=== PATIENT | male | born 1945 | race Caucasian/White ===

== ENCOUNTER 2017-05-31 15:24 | Emergency (ER) | payer OTHER ==
[~2017-05-31] VITALS: Ht 188 cm; Wt 53.8 kg
[~2017-05-31 15:24] MED LIST: ADULT LOW DOSE81 M1 PO; ALLERGY RELIEF25 MG PO; ATORVASTATIN CA40 MG PO; BENADRYL ALLERG25 MG PO; CATAPRES0.2 MG PO; DESYREL100 MG PO; DIGOX125 MCG PO; GINKGO BILOBA60 M1 PO; GLUCOPHAGE XR750 MG PO; HYDROCODON-ACE1 EAC7 PO; KEFLEX500 MG PO; LANOXIN,DIGIT0.25 MG PO; LANOXIN250 MCG PO; LEVOTHROID,S0.125 MG PO; LEVOTHYROXINE125 MCG PO; LEXAPRO5 MG PO; LIPITOR10 MG PO; LOPRESSOR50 MG PO; MEDROL DOSEPAK4 MG PO; MELATONIN1 MG PO; MELATONIN5 M1 PO; METFORMIN HCL500 MG PO; METFORMIN HCL750 MG PO; METOPROLOL TAR100 MG PO; MULTIVITAMIN1 EAC1 PO; NAPROSYN250 MG PO; NORCO 5/3251 TABLET PO; PRADAXA150 MG PO; PREDNISONE20 MG PO; TYLENOL PM1 CAPLET PO; ULTRAM50 MG PO; WARFARIN SODIUM3 MG PO; ZOLPIDEM TARTRA10 MG PO; ZOLPIDEM TARTRAT5 MG PO
[2017-05-31 16:06] LABS: BASOPHIL COUNT 0.1 K/uL (0-0.1); EOSINOPHIL (%) 2.1 % (0-5); EOSINOPHIL COUNT 0.2 K/uL (0-0.3); HEMATOCRIT 41.7 % (38.0-50.0); IMMATURE GRANULOCYTE (%) 0.4 % (0.0-0.7); INSTRUMENT ABS NEUTROPHIL CT 5.2 K/uL; LYMPHOCYTE COUNT 3.2 K/uL (1.0-2.8); MCH 31.2 PG (29.0-34.0); MCHC 32.6 G/DL (30.0-36.0); MCV 95.6 FL (86-99); MEAN PLAT.VOLUME 10.7 uM^3 (9.0-12.4); MONOCYTE (%) 4.9 % (3-12); MONOCYTE COUNT 0.5 K/uL (0-0.8); NEUTROPHIL (%) 56.7 % (45-76); NEUTROPHIL COUNT 5.2 K/uL (1.8-6.4); PLATELET COUNT 192 K/uL (156-360); RBC DIS.WIDTH-CV 14.6 % (11.8-14.6); RED BLOOD COUNT 4.36 M/uL (4.00-5.50); WHITE BLOOD COUNT 9.1 K/uL (4.1-10.2)
[2017-05-31 16:14] LABS: CHLORIDE 103 mEq/L (99-109); POTASSIUM 4.1 mEq/L (3.7-5.4); SODIUM 138 mEq/L (136-147)
[2017-05-31 16:16] LABS: GLUCOSE 304 mg/dL (70-99)
[2017-05-31 16:17] LABS: ANION GAP 11 MEQ/L (2-14)
[2017-05-31 16:19] LABS: GFR ESTIMATE (CALCULATED) 46 mL/min/; SERUM ETHYL ALCOHOL < 10 mg/dL
[2017-05-31 16:20] LABS: UREA NITROGEN (BUN) 16 mg/dL (9-23)
[2017-05-31 17:19] LABS: ADD MIUA? YES; BILIRUBIN NEGATIVE; BLOOD NEGATIVE; COLOR YELLOW ((YELLOW)); GLUCOSE (STRIP) 150; KETONES NEGATIVE; LEUKOCYTES MODERATE; NITRITE NEGATIVE; PROTEIN (STRIP) 30; SPECIFIC GRAVITY 1.016 (1.000-1.030)
[2017-05-31 17:29] LABS: AMPHETAMINE NEGATIVE (500 ng/mL); BARBITURATES NEGATIVE (200 ng/mL); BENZODIAZEPINES NEGATIVE (150 ng/mL); COCAINE NEGATIVE (150 ng/mL); INTERNAL CONTROLS VALID? YES; METHADONE NEGATIVE (200 ng/mL); METHAMPHETAMINE NEGATIVE (500 ng/mL); OPIATES (MORPHINE) NEGATIVE (100 ng/mL); OXYCODONE NEGATIVE (100 ng/mL); PHENCYCLIDINE NEGATIVE (25 ng/mL); PROPOXYPHENE NEGATIVE (300 ng/mL); THC CANNABINOIDS NEGATIVE (50 ng/mL); TRICYCLIC ANTIDEPRESSANTS NEGATIVE (300 ng/mL)
[2017-05-31 17:34] LABS: BACTERIA RARE /HPF; CALCIUM OXALATE CRYSTALS 1+ /HPF; EPITHELIAL CELLS RARE /HPF; MUCUS TRACE /LPF; RED BLOOD CELLS 0-5 /HPF (0-5); WHITE BLOOD CELLS TNTC /HPF (0-5)
[2017-05-31] MEDS ORDERED: LEVAQUIN750 MG PO (19:41)
[2017-05-31 19:42] LABS: POINT-OF-CARE METER ID UU14100415
[2017-05-31] MEDS ORDERED: LEVAQUIN500 MG PO (19:43)
[2017-05-31 20:30] VITALS: BP 127/90
== END 2017-05-31 20:30 | disposition home or self-care (01) ==
LOC: EME 15:24
PROVIDERS: Emergency Medicine
DX: F03.91 Unspecified dementia, unspecified severity, with behavioral disturbance (principal); F02.81 Dementia in other diseases classified elsewhere, unspecified severity, with behavioral disturbance; N39.0 Urinary tract infection, site not specified; E11.9 Type 2 diabetes mellitus without complications; Z87.820 Personal history of traumatic brain injury; F32.9 Major depressive disorder, single episode, unspecified; E78.5 Hyperlipidemia, unspecified; I10 Essential (primary) hypertension; I48.91 Unspecified atrial fibrillation; Z79.84 Long term (current) use of oral hypoglycemic drugs; Z86.73 Personal history of transient ischemic attack (TIA), and cerebral infarction without residual deficits; F17.200 Nicotine dependence, unspecified, uncomplicated
CPT/HCPCS: 80048; 81003; 82948; 85025; 90837; 99281; 99285; G0480; J0696; J7030; J7050

== ENCOUNTER 2017-07-20 16:42 | Inpatient (IN) | payer OTHER ==
[~2017-07-20] VITALS: Ht 188 cm; Wt 74.5 kg
[~2017-07-20 16:42] MED LIST changes: +DAILY VALUE1 EACH PO; +LEVAQUIN500 MG PO; +LEVAQUIN750 MG PO; -MULTIVITAMIN1 EAC1 PO
[2017-07-20 17:36] LABS: HEMATOCRIT 40.1 % (38.0-50.0); MCH 31.3 PG (29.0-34.0); MCHC 32.7 G/DL (30.0-36.0); MCV 95.9 FL (86-99); MEAN PLAT.VOLUME 10.6 uM^3 (9.0-12.4); PLATELET COUNT 159 K/uL (156-360); RBC DIS.WIDTH-CV 14.1 % (11.8-14.6); RBC DIS.WIDTH-SD 50.2 % (39-53); RED BLOOD COUNT 4.18 M/uL (4.00-5.50); WHITE BLOOD COUNT 9.2 K/uL (4.1-10.2)
[2017-07-20 17:44] LABS: CHLORIDE 107 mEq/L (99-109); POTASSIUM 4.6 mEq/L (3.7-5.4); SODIUM 140 mEq/L (136-147)
[2017-07-20 17:46] LABS: GLUCOSE 174 mg/dL (70-99)
[2017-07-20 17:47] LABS: ANION GAP 9 MEQ/L (2-14)
[2017-07-20 17:49] LABS: GFR ESTIMATE (CALCULATED) 58 mL/min/
[2017-07-20 17:50] LABS: UREA NITROGEN (BUN) 29 mg/dL (9-23)
[2017-07-20] MEDS ORDERED: METFORMIN HCL750 MG PO (20:10)
[2017-07-20 21:48] VITALS: BP 136/78
[2017-07-21 00:36] LABS: POINT-OF-CARE METER ID UU14174225
[2017-07-21 06:08] LABS: HEMATOCRIT 38.4 % (38.0-50.0); MCH 30.9 PG (29.0-34.0); MCHC 31.8 G/DL (30.0-36.0); MCV 97.2 FL (86-99); MEAN PLAT.VOLUME 11.2 uM^3 (9.0-12.4); PLATELET COUNT 148 K/uL (156-360); RBC DIS.WIDTH-CV 14.3 % (11.8-14.6); RBC DIS.WIDTH-SD 51.8 % (39-53); RED BLOOD COUNT 3.95 M/uL (4.00-5.50); WHITE BLOOD COUNT 8.5 K/uL (4.1-10.2)
[2017-07-21 06:29] LABS: HDL CHOLESTEROL 36 MG/DL (Desirable>=40); LDL CHOLESTEROL 84 mg/dL (Desirable<100); NON-HDL CHOLESTEROL 131 mg/dL (Desirable<160); TOTAL CHOLESTEROL 167 mg/dL (Desirable<200); TRIGLYCERIDES 237 MG/DL (Normal: <150)
[2017-07-21 06:45] LABS: Estimated Average Glucose 192 mg/dL (70-123); HEMOGLOBIN A1c (GLYCOHEMOGLOB) 8.3 % HGB (Below 5.7)
[2017-07-21 07:26] VITALS: BP 129/82
[2017-07-21 11:21] VITALS: BP 112/56
[2017-07-21 11:25] LABS: POINT-OF-CARE METER ID UU14174225
[2017-07-21 12:19] LABS: INTER. NORMALIZED RATIO 1.1; PROTHROMBIN TIME 12.2 SEC (10.2-12.9)
[2017-07-21 15:20] VITALS: BP 130/72
[2017-07-21 16:43] LABS: POINT-OF-CARE METER ID UU14188625
[2017-07-21 19:34] VITALS: BP 114/63
[2017-07-21 21:28] LABS: POINT-OF-CARE METER ID UU14174225
[2017-07-21 23:37] VITALS: BP 110/59
[2017-07-22 03:45] VITALS: BP 88/53
[2017-07-22 07:29] VITALS: BP 101/58
[2017-07-22 11:30] VITALS: BP 113/59
[2017-07-22 15:16] VITALS: BP 102/59
[2017-07-22 16:09] LABS: POINT-OF-CARE METER ID UU14174225
[2017-07-22 19:42] VITALS: BP 118/60
[2017-07-22 23:46] VITALS: BP 105/52
[2017-07-23 06:40] LABS: HEMATOCRIT 39.1 % (38.0-50.0); MCH 32.3 PG (29.0-34.0); MCHC 33.2 G/DL (30.0-36.0); MEAN PLAT.VOLUME 11.1 uM^3 (9.0-12.4); PLATELET COUNT 134 K/uL (156-360); RBC DIS.WIDTH-CV 14.3 % (11.8-14.6); RBC DIS.WIDTH-SD 51.3 % (39-53); RED BLOOD COUNT 4.03 M/uL (4.00-5.50); WHITE BLOOD COUNT 7.6 K/uL (4.1-10.2)
[2017-07-23 06:47] LABS: PROTHROMBIN TIME 10.5 SEC (10.2-12.9)
[2017-07-23 06:51] LABS: PTT 38.7 SEC (25-37)
[2017-07-23 07:48] VITALS: BP 115/65
[2017-07-23 12:15] LABS: POINT-OF-CARE METER ID UU14188625
[2017-07-23 15:57] VITALS: BP 147/71
[2017-07-23 18:51] LABS: POINT-OF-CARE METER ID UU13113675; POINT-OF-CARE USER ID 515036437
[2017-07-23 23:24] LABS: POINT-OF-CARE METER ID UU13113675
[2017-07-24 07:12] VITALS: BP 109/64
[2017-07-24 09:17] LABS: POINT-OF-CARE METER ID UU13113781
[2017-07-24 11:52] LABS: POINT-OF-CARE METER ID UU13113781; POINT-OF-CARE USER ID ENVKC36
[2017-07-24 12:19] VITALS: BP 120/61
[2017-07-24] MEDS ORDERED: HYDROCODON-ACE1 EAC7 PO (13:53)
[2017-07-24 15:47] VITALS: BP 120/61
== END 2017-07-24 16:51 | disposition home or self-care (01) | DRG 37 ==
LOC: EME 16:42 → 5SOUTH 19:52 → EDOF 19:52 → ENRESERV 19:57 → 5SOUTH 21:31 → ENRESERV 07-23 07:10 → 5SOUTH 07-23 17:43 → ENPENDDIS 07-24 → ENRESERV 07-24 00:37 → 4EAST 07-24 02:54
PROVIDERS: Emergency Medicine; Hospitalist; Nurse Practitioner Adult Health
PROC: 03CL0ZZ Extirpation of Matter from Left Internal Carotid Artery, Open Approach (ICD-10-PCS; principal; 2017-07-23)
DX: I65.22 Occlusion and stenosis of left carotid artery (principal); I63.9 Cerebral infarction, unspecified; I48.2 Chronic atrial fibrillation; I10 Essential (primary) hypertension; I77.1 Stricture of artery; E11.9 Type 2 diabetes mellitus without complications; E78.5 Hyperlipidemia, unspecified; E03.9 Hypothyroidism, unspecified; F41.9 Anxiety disorder, unspecified; F17.210 Nicotine dependence, cigarettes, uncomplicated; R29.702 NIHSS score 2; I73.00 Raynaud's syndrome without gangrene; Z86.73 Personal history of transient ischemic attack (TIA), and cerebral infarction without residual deficits; Z87.898 Personal history of other specified conditions; Z87.11 Personal history of peptic ulcer disease; Z79.01 Long term (current) use of anticoagulants; Z82.3 Family history of stroke
CPT/HCPCS: 70450; 70496; 70498; 70551; 80048; 80061; 82607; 82746; 82948; 83036; 84439; 84443; 85027; 85610; 85730; 93005; 93880; 99281; 99285; C1768; J0360; J0690; J1170; J1644; J1815; J2250; J2405; J2720; J2795; J3010; J7030; J7120

== ENCOUNTER → 2018-02-22 | Outpatient (CLI) | payer OTHER | END | disposition home or self-care (01) | LOC: CT 18:07 | DX: R42 Dizziness and giddiness (principal); R51 Headache; H53.8 Other visual disturbances; W19.XXXS Unspecified fall, sequela | CPT/HCPCS: 70450 ==